=== PATIENT | female | born 1950 | race Caucasian/White ===

== ENCOUNTER → 2018-01-21 | Outpatient (CLI) | payer MEDICARE, OTHER ==
[~2018-01-21] MED LIST: GABA-826 PO; HYDR-3241 PO; LISI2.5T PO; METO25TA35 PO; REGADENOSON 0.4 MG/5 ML SYRINGE ONE
== END | disposition home or self-care (01) ==
LOC: CFH 08:37
PROVIDERS: ATTEND Internal Medicine Cardiovascular Disease
DX: I71.2 Thoracic aortic aneurysm, without rupture (principal)
CPT/HCPCS: 78452; 93017; A9502; J2785